=== PATIENT | male | born 1970 | race Caucasian/White ===

== ENCOUNTER 2023-10-11 07:55 | Emergency (ER) | payer OTHER ==
[~2023-10-11] VITALS: Ht 182.9 cm; Wt 110.0 kg
[2023-10-11] MEDS ORDERED: BAYER ADVANCED500 MG PO (08:16)
[2023-10-11] MEDS ORDERED: PRILOSEC OTC20 MG PO (08:17)
[2023-10-11] MEDS ORDERED: TRELEGY ELLIPT1 EAC1 IH (08:18)
[2023-10-11 09:01] VITALS: BP 141/100
== END 2023-10-11 09:02 | disposition home or self-care (01) ==
LOC: ED 07:55
DX: S83.92XA Sprain of unspecified site of left knee, initial encounter (principal); X50.1XXA Overexertion from prolonged static or awkward postures, initial encounter; Z88.5 Allergy status to narcotic agent; Z79.82 Long term (current) use of aspirin
CPT/HCPCS: 73560